=== PATIENT | female | born 1970 | race Two or more races ===

== ENCOUNTER 2017-08-18 19:05 | Emergency (ER) | payer OTHER ==
[~2017-08-18] VITALS: Ht 162.6 cm; Wt 75.0 kg
[~2017-08-18 19:05] MED LIST: FOLITAB6 OR; NEXI20CA PO; PREVASTATIN; TRAM50 PO; TYLE3 PO; ZETI10TA5 OR
[2017-08-18 19:11] VITALS: BP 153/88; PULSE 97; RESP 16; TEMP 98.3; O2SAT 100
[2017-08-18] MEDS ORDERED: KETOROLAC TROMETHAMINE 60 MG/2 ML (IM) VIAL IM ONE (19:45)
[2017-08-18] MEDS ORDERED: ACETAMINOPHEN/HYDROcodone 325 MG/5 MG TAB PO ONE (19:45)
[2017-08-18] MEDS ORDERED: HYDR-3580 PO (20:10)
[2017-08-18] MEDS ORDERED: IBUP-232 PO (20:10)
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
== END 2017-08-18 21:09 | disposition home or self-care (01) ==
LOC: NEPD 19:05
DX: S39.012A Strain of muscle, fascia and tendon of lower back, initial encounter (principal); V43.92XA Unspecified car occupant injured in collision with other type car in traffic accident, initial encounter; Y92.410 Unspecified street and highway as the place of occurrence of the external cause
CPT/HCPCS: 72100; 96372; 99284; J1885